=== PATIENT | male | born 2000 ===

== ENCOUNTER 2023-06-18 13:22 | Emergency (ER) | payer OTHER, MEDICAID, SELFPAY ==
--- NOTE | ~2023-06-18 | XR_ITS ---
EXAMINATION: Right shoulder and thoracic spine. CLINICAL INDICATIONS: Shoulder pain and back pain status post lifting weights. TECHNIQUE: Thoracic spine 3 views. Right shoulder 2 views. FINDINGS: THORACIC SPINE: There is normal thoracic kyphosis. The vertebral heights, alignment and disc heights are normal. There is no visible acute fracture, dislocation or subluxation seen. The paravertebral soft tissues are normal. RIGHT SHOULDER: There is no visible acute fracture, dislocation or subluxation seen. No bony erosive changes. The soft tissues are normal. XR/XR thoracic spine 2V IMPRESSION: 1. Unremarkable dorsal spine exam. 2. Unremarkable right shoulder exam. No visible acute fracture or dislocation seen. r
--- NOTE | ~2023-06-18 | XR_ITS ---
EXAMINATION: Right shoulder and thoracic spine. CLINICAL INDICATIONS: Shoulder pain and back pain status post lifting weights. TECHNIQUE: Thoracic spine 3 views. Right shoulder 2 views. FINDINGS: THORACIC SPINE: There is normal thoracic kyphosis. The vertebral heights, alignment and disc heights are normal. There is no visible acute fracture, dislocation or subluxation seen. The paravertebral soft tissues are normal. RIGHT SHOULDER: There is no visible acute fracture, dislocation or subluxation seen. No bony erosive changes. The soft tissues are normal. XR/XR shoulder RT min 2V IMPRESSION: 1. Unremarkable dorsal spine exam. 2. Unremarkable right shoulder exam. No visible acute fracture or dislocation seen. r
[2023-06-18 14:15] VITALS: BP 137/86; PULSE 54; RESP 16; TEMP 37.5; O2SAT 99; BMI 22.5
--- NOTE | 2023-06-18 14:17 | ED_ITS ---
HPI - Back Pain/Injury General Chief Complaint: Back Pain/Injury Stated Complaint: back pain Time Seen by Provider: 06/18/23 15:19 Source: patient, RN notes reviewed and old records reviewed Mode of arrival: ambulatory History of Present Illness HPI Narrative: 22-year-old male with no significant past medical history presenting to the ED complaining of right upper back/shoulder pain s/p lifting weights at the gym yesterday. States feels like may have pulled something. Denies direct injury/trauma or fall. Took Tylenol without relief. Denies chest pain, numbness, tingling, weakness, fever/chills, incontinence/retention. MD elicited complaint: back pain Related Data Previous Rx's Medication Instructions Recorded acetaminophen 500 mg tablet 500 mg PO Q6H PRN fever or pain 06/18/23 (Tylenol Extra Strength) #14 tabs cyclobenzaprine 5 mg tablet 5 mg PO Q8H PRN pain (scale score 06/18/23 7-10) 5 days #14 tabs lidocaine 5 % topical patch 1 patch topical DAILY PRN pain #30 06/18/23 (Lidoderm) ea naproxen 500 mg tablet 500 mg PO BID PRN pain 10 days #20 06/18/23 tabs Allergies Allergy/AdvReac Type Severity Reaction Status Date / Time No Known Allergies Allergy Verified 06/18/23 14:15 Review of Systems Review of Systems: Constitutional: No Fever, No Chills ENT/Mouth: No Ear Pain, No Nasal Congestion Cardiovascular: No Chest Pain, No SOB Respiratory: No Cough, No Sputum Gastrointestinal: No Nausea, No Vomiting, No Abdominal pain Genitourinary: No Dysuria, No Urinary Frequency, No Hematuria, No Urinary Incontinence/retention, No Flank Pain Musculoskeletal: + joint pain, No Myalgias, No Joint Swelling Skin: No Skin Lesions, No rash Neuro: No Weakness Yes all other systems are reviewed and are negative Constitutional: Constitutional: Reports as per [facility] Past Medical History Attestation statement: The following information was validated with the patient. Source: old records reviewed Social History Advance Directives: No Advance Directives Information Provided: No Physical Exam Vital Signs: Vital Signs: Last Vital Signs Temp 99.5 F 06/18/23 14:15 Pulse 54 06/18/23 14:15 Resp 16 06/18/23 14:15 BP 137/86 06/18/23 14:15 Pulse Ox 99 06/18/23 14:15 O2 Del Method Room Air 06/18/23 14:15 BMI result Body Mass Index 22.5 Const: General: cooperative, healthy appearing and no acute distress Orientation/consciousness: patient oriented x3 Limitations: no limitations HEENT: Head: Yes normal to inspection and Yes atraumatic Ears: hearing grossly normal bilaterally General nose exam: Normal external nose present Face and sinus: Yes normal facial exam Eyes: General: appearance normal, both eyes and all related structures EOM: EOMs intact bilaterally Neck: Neck: Yes normal visual inspection and Yes no meningeal signs Chest: Chest palpation & inspection: normal inspection of the chest Resp: Effort & Inspection: normal respiratory effort and no respiratory distress Cardio: Rate: regular rate Peripheral pulses: Peripheral pulses 2+ throughout Back/Spine/Pelvis: Other: No midline cervical/thoracic/lumbar spinous tenderness/step-off or deformity. + right scapular MSK swelling/spasming appreciated with tenderness to palpation. No erythema/warmth or rash Skin: Rashes: no rashes Wounds: no wounds Neuro: General: patient oriented x3, tone normal and no meningeal signs Cranial nerves: Yes CN's II-XII intact bilaterally Gait exam (Neuro): Normal gait present Extrem: Other: Shoulder nontender, no deformity. ROM intact with some discomfort. Neurovascular intact distally General: Yes normal to inspection Course Course Course Narrative: RME:?22 yo male with no significant pmhx presents to the ED for eval of right shoulder/back pain s/p lifting weights yesterday. Has been taking tylenol 800 wi thout relief. last does last night. Endorses sob d/t pain. PE: TTP over the thoracic paraspinal muscles, under right shoulder blade. Full ROM to r shoulder. Lungs CTA b/l. Plan: xrays Full HPI, ROS and PE to be performed by the primary ED provider. XR shoulder RT min 2V/XR thoracic spine 2V IMPRESSION: 1. Unremarkable dorsal spine exam. 2. Unremarkable right shoulder exam. No visible acute fracture or dislocation seen. Results discussed with patient including worrisome signs and symptoms and strict return precautions, and when to return to the emergency department. They verbalized understanding and feel safe for discharge at this time. Medical Decision Making Medical Decision Making [facility] Narrative: 22-year-old male with no significant past medical history presenting to the ED complaining of right upper back/shoulder pain s/p lifting weights at the gym yesterday. On exam vital signs stable, NAD, nontoxic appearing, physical exam as noted above. Concern for MSK pain/strain and spasming. Low suspicion for fracture, PE, pneumonia, pneumothorax or ACS Plan: X-rays ordered in triage Please refer to course for remaining clinical decision making, interpretation of labs/imaging results, and discussions with consultants and/or family members. Differential Diagnosis Differential Diagnoses: The differential diagnosis associated with the presentation includes As above Independent Interpretation I performed an independent interpretation of an: Plain X-Ray Radiology Impression Discussion of test interpretation with radiology: I have reviewed the radiologist's reading. External Record Review External record reviewed: Inpatient record, Office record, Outpatient record, Prior outpatient labs, Prior outpatient radiology, Primary care record and Outside ED record Tests considered The following testing was considered but not selected: As above Discharge Plan Discharge Clinical Impression: Muscle spasm Patient Disposition: Home, Self-Care Instructions: Muscle Spasm (ED) Additional Instructions: Your x-rays are unremarkable Your pain is likely musculoskeletal Flexeril is a muscle relaxer, take at night as it makes you drowsy, do not drive, drink alcohol, or operate machinery while taking it Naproxen as an anti-inflammatory / pain medication, take with food Lidoderm patches are numbing patches, apply to painful area In addition take Tylenol at home If symptoms persist or worsen, pain becomes unbearable, you developed urinary retention or incontinence, or weakness return to the ED Prescriptions: New acetaminophen [Tylenol Extra Strength] 500 mg tablet 500 mg PO Q6H PRN (Reason: fever or pain) Qty: 14 0RF lidocaine [Lidoderm] 5 % adhesive patch,medicated 1 patch topical DAILY MDD remove after 12 hours PRN (Reason: pain) Qty: 30 0RF Rx Instructions: leave on most painful area for up to 12 hrs naproxen 500 mg tablet 500 mg PO BID PRN (Reason: pain) 10 Days Qty: 20 0RF cyclobenzaprine 5 mg tablet 5 mg PO Q8H PRN (Reason: pain (scale score 7-10)) 5 Days Qty: 14 0RF Referrals: [facility] [Provider Group] Physician,Unknown J [Primary Care Provider] - Interventions: ED Discharge Assessment Last Done: 06/18/23 16:41 Discharge Date/Time: 06/18/23 16:42
== END 2023-06-18 16:42 | disposition home or self-care (01) ==
PROVIDERS: Emergency Provider Emergency Medicine
DX: M62.830 Muscle spasm of back (principal)
CPT/HCPCS: 72070; 73030; 99282; 99283

== ENCOUNTER 2023-07-05 09:18 | Outpatient (REF) | payer MEDICAID, SELFPAY ==
[2023-07-05 09:38] LABS: MANUAL DIFF FLAG NO
[2023-07-05 09:40] LABS: Basophils Absolute Auto 0.1 X10*3/uL (0.0-0.2); Basophils Percent Auto 1.1 % (0-2); Eosinophils Absolute Auto 0.1 X10*3/uL (0.0-0.4); Eosinophils Percent Auto 1.2 % (0-4); Hematocrit 39.6 % (42.0-52.0); Hemoglobin 12.6 g/dl (14.0-18.0); Imm Gran Abs Auto 0.01 X10*3/uL (0.00-0.03); Imm Gran Pct Auto 0.2 % (0.0-0.4); Lymphocytes Absolute Auto 1.6 X10*3/uL (1.2-4.9); Lymphocytes Percent Auto 28.6 % (20-40); Mean Corpuscular HGB Conc 31.8 g/dl (31.0-36.0); Mean Corpuscular Volume 72.4 fL (80.0-98.0); Mean Platelet Volume 9.5 fL (9.4-12.4); Monocytes Absolute Auto 0.7 X10*3/uL (0.1-1.2); Monocytes Percent Auto 12.3 % (2-11); Neutrophils Absolute Auto 3.2 x10*3/uL (2.0-8.3); Neutrophils Percent Auto 56.6 % (45-73); Platelet Count 243 X10*3/uL (160-400); Red Blood Count 5.47 X10*6/uL (4.60-5.80); Red Cell Distribution Width 15.4 % (11.0-16.0); White Blood Count 5.7 X10*3/uL (4.8-10.8)
[2023-07-05 10:18] LABS: Erythrocyte Sedimentation Rate 2 MM/HR (0-15)
== END 2023-07-05 09:19 | disposition home or self-care (01) ==
LOC: HO.LAB 09:18
PROVIDERS: PCP Family Medicine Adult Medicine; Visit Provider Family Medicine Adult Medicine
DX: R61 Generalized hyperhidrosis (principal)
CPT/HCPCS: 36415; 85025; 85652